=== PATIENT | female | born 1990 | race Caucasian/White ===

== ENCOUNTER → 2020-09-03 | Outpatient (CLI) | payer BC ==
--- NOTE | 2020-09-03 17:46 | US ---
EXAMINATION TYPE: US st tissue head/neck DATE OF EXAM: 09/03/2020 COMPARISON: NONE CLINICAL HISTORY: 29-year-old female L72.3 Right facial nodule - sebaceous cyst. Lump at the right pa rotid area for years Technique: Scanned area of concern (right parotid). FINDINGS: Ultrasound images demonstrate a round, circumscribed, hypoechoic to isoechoic, mildly heterogeneous l esion just deep to the skin surface and possibly indenting the superficial aspect of the parotid glan d. This shows posterior through-transmission and possible minimal to no internal vascularity. The les ion measures 2.1 x 1.2 x 1.6cm. Just deep to this area, there is a right parotid space lymph node, borderline enlarged at 1.0 x 0.5 x 0.7cm IMPRESSION: 1. Nonspecific 2.1 x 1.6 x 1.2 cm circumscribed mass versus highly debris-filled cystic structure eit her just deep to the skin surface or located within the superficial aspect of the right parotid gland . Consider MRI for better tissue characterization and localization. Both sebaceous cyst and a salivar y gland tumor (favored benign) are in the differential. 2. There is a borderline enlarged lymph node within the left parotid space just underlying measuring 7 mm short axis.
== END | disposition home or self-care (01) ==
LOC: RADUSWWP 12:57
PROVIDERS: ATTEND Otolaryngology
DX: E04.1 Nontoxic single thyroid nodule (principal); L72.3 Sebaceous cyst; Z88.2 Allergy status to sulfonamides; R59.9 Enlarged lymph nodes, unspecified
CPT/HCPCS: 76536

== ENCOUNTER 2020-09-19 08:12 | Day surgery (SDC) | payer BC ==
[2020-09-17 14:06] VITALS: BMI 23.3
[~2020-09-19 08:12] MED LIST: FAMOTIDINE 20 MG/2 ML VIAL IV ONE; LACTATED RINGERS 1,000 ML IV SCH; LIDOCAINE 1% (10MG/ML) FOR IV START INTRADERMA PRN
[2020-09-19] MEDS ORDERED: ONDANSETRON 4 MG/2 ML VIAL ONE (09:18)
[2020-09-19] MEDS ORDERED: DEXAMETHASONE SOD PHOSPHATE 4 MG/ML 1 ML VIAL IVP ONE (09:21)
[2020-09-19] MEDS ORDERED: fentaNYL (PF) 50 MCG/ML 2 ML AMP ONE (10:04)
[2020-09-19] MEDS ORDERED: SUCCINYLCHOLINE CHLORIDE 100 MG/5 ML SYR IV ONE (10:04)
[2020-09-19] MEDS ORDERED: LIDOCAINE 1% INJ 10MG/ML (20 ML MDV) ONE (10:04)
[2020-09-19] MEDS ORDERED: PHENYLEPHRINE-0.9% NACL SYG 1 MG/10 ML SYRINGE ONE (10:04)
[2020-09-19] MEDS ORDERED: PROPOFOL 10 MG/ML 20 ML VIAL IV ONE (10:04)
[2020-09-19] MEDS ORDERED: MIDAZOLAM 2 MG/2 ML VIAL ONE (10:04)
[2020-09-19] MEDS ORDERED: LIDOCAINE 1%-EPI 1:100,000 20 ML VIAL SQ ONE (10:34)
[2020-09-19] MEDS ORDERED: LACTATED RINGERS 1,000 ML IV ONE (11:03)
[2020-09-19] MEDS ORDERED: BACITRACIN ZINC 500 UNIT/GM OINT 28.4 GM TUBE TOPICAL ONE (11:16)
--- NOTE | 2020-09-19 11:23 | P.OP ---
Date of Procedure: 09/19/20 Preoperative Diagnosis: Right preauricular nodule Postoperative Diagnosis: Same, cyst Procedure(s) Performed: Excision right preauricular cyst 2.3 cm with layered EMG facial nerve monitoring Anesthesia: MALINDAA Surgeon: Fransisco Acosta Estimated Blood Loss (ml): 3 Pathology: other (Right preauricular cyst) Condition: stable Disposition: PACU Indications for Procedure: Is a 29-year-old white female with a slowly enlarging right preauricular nodule Operative Findings: Cystic appearing lesion with sebaceous material within the right preauricular superficial to the SMAS Description of Procedure: The patient was brought in the operative suite and placed in a supine position. The patient underwent induction of general anesthesia with oral endotracheal intubation without difficulty. The patient was prepped and draped in usual aseptic fashion after the NIM II facial nerve monitor needle probes were placed and this was tested and was working well at the orbicularis oculi and orbicularis mica. 1% lidocaine with 1-100,000 epinephrine was infused subcutaneously at the incision site and left to work for 7 minutes vasoconstrictive effect. The incision was made directly over the lesion in the direction of the relaxed skin tension lines and carried through the skin and subcutaneous tissue to the capsule of the cyst. This appears consistent with a sebaceous cyst. The lateral aspect was well visualized and dissected from the surrounding tissue. In order to access the more medial aspect 2 controlled incisions were placed and the sebaceous material evacuated from the cyst with suctioning without spill into the wound. This allowed continued dissection to excise the cyst with its wall grossly entirely from the surrounding tissue. This was noted to be superficial to the SMAS. Hemostasis was gained with bipolar cautery. The wound was then copiously irrigated with sterile normal saline. The wound was closed in the deep and superficial subcutaneous layers with inverted interrupted 4-0 chromic suture and skin closed with running locking 5-0 Prolene suture. Bacitracin ointment and sterile dressings were placed. The patient was allowed to emerge from general anesthesia having tolerated procedure well and was extubated in the operating suite and transferred to postop recovery area in satisfactory condition. Facial movement was normal.
[2020-09-19 11:32] VITALS: TEMP 97.2
[2020-09-19 12:52] VITALS: BP 108/64; PULSE 78; RESP 18
== END 2020-09-19 13:11 | disposition home or self-care (01) ==
LOC: OR 08:12
PROVIDERS: ATTEND Otolaryngology
DX: Q18.1 Preauricular sinus and cyst (principal); K21.9 Gastro-esophageal reflux disease without esophagitis; Z98.890 Other specified postprocedural states; Z87.11 Personal history of peptic ulcer disease; Z82.49 Family history of ischemic heart disease and other diseases of the circulatory system; Z83.42 Family history of familial hypercholesterolemia; Z80.8 Family history of malignant neoplasm of other organs or systems; Z83.52 Family history of ear disorders; Z87.891 Personal history of nicotine dependence; Z79.899 Other long term (current) drug therapy; Z88.2 Allergy status to sulfonamides
CPT/HCPCS: 81025; 88304; 11443; 12051; J2250; J1100; J2405; J0690; J2001; J3010; J2370; J0330; J2704

== ENCOUNTER → 2023-03-26 | Outpatient (CLI) | payer BC ==
--- NOTE | 2023-03-27 09:03 | CT ---
EXAMINATION TYPE: CT sinus wo con DATE OF EXAM: 03/26/2023 COMPARISON: None HISTORY: Chronic sinusitis. CT DLP: 480.8 mGycm. Automated Exposure Control for Dose Reduction was Utilized. TECHNIQUE: CT scan of the sinuses is performed without contrast, axial images are obtained, coronal r eformatted images are also reviewed. FINDINGS: The paranasal sinuses including the frontal, ethmoid, sphenoid, and maxillary sinuses bila terally mild mucosal thickening involving bilateral maxillary sinuses. No air-fluid levels. There is a moderate size flori bullosa on the right and there is mild mucosal thickening involving ethmoid ai r cells. Slight nasal septal deviation noted.. The ostiomeatal complex is patent bilaterally on the coronal images. Visualized portion of mastoid air cells show no abnormal opacification. The globes are intact bilate rally. IMPRESSION: 1. Mild chronic window and maxillary sinusitis. No evidence of sinusitis.
== END | disposition home or self-care (01) ==
LOC: RADCTMAIN 18:35
PROVIDERS: ATTEND Otolaryngology
DX: J32.9 Chronic sinusitis, unspecified (principal)
CPT/HCPCS: 70486